=== PATIENT | female | born 1980 | race Caucasian/White ===

== ENCOUNTER 2021-09-21 22:23 | Emergency (ER) | payer OTHER ==
[~2021-09-21] VITALS: Ht 167.6 cm; Wt 56.8 kg
[2021-09-21 22:24] VITALS: BP 119/67
[2021-09-21] MEDS ORDERED: AMOX1TAB16 PO (23:40)
== END 2021-09-22 01:11 | disposition home or self-care (01) ==
LOC: EMS 22:26
DX: K04.7 Periapical abscess without sinus (principal); K02.9 Dental caries, unspecified
CPT/HCPCS: 99283; Z7502

== ENCOUNTER 2022-01-08 09:50 | Emergency (ER) | payer OTHER ==
[~2022-01-08] VITALS: Ht 165.1 cm; Wt 59.0 kg
[~2022-01-08 09:50] MED LIST: AMOX1TAB16 PO
[2022-01-08] MEDS ORDERED: ALBU8HFA IH ×2 (10:10→13:23)
[2022-01-08] MEDS ORDERED: IPRATROPIUM BROMIDE 0.5 MG/2.5 ML NEB SOLUTION NEB ONE ×2 (10:30→12:30)
[2022-01-08] MEDS ORDERED: PredniSONE 20 MG TABLET PO ONE (10:30)
[2022-01-08] MEDS ORDERED: ALBUTEROL SULFATE 2.5 MG/0.5 ML NEB SOLUTION NEB ONE ×2 (10:30→12:30)
[2022-01-08 10:48] LABS: BASOPHILS % (AUTO) 0.9 % (0.0-2.0); HEMATOCRIT 32.4 % (36-46); HEMOGLOBIN 10.1 g/dL (12.0-16.0); LYMPHOCYTES % (AUTO) 16.3 % (22.0-44.0); MEAN CORPUSCULAR HEMOGLOBIN 20.1 pg (26.0-34.0); MEAN CORPUSCULAR VOLUME 65 fL (80-100); MONOCYTES # (AUTO) 0.5 K/uL (0.1-1.0); MONOCYTES % (AUTO) 4.1 % (2.0-9.0); NEUTROPHILS # (AUTO) 7.8 K/uL (1.8-7.7); NEUTROPHILS % (AUTO) 64.7 % (40.0-70.0); PLATELET COUNT (AUTO) 384 K/uL (150-450); RED BLOOD CELL COUNT(AUTO) 5.01 MIL/uL (4.00-5.20); RED CELL DISTRIBUTION WIDTH 17.6 % (11.5-14.5)
[2022-01-08 10:56] LABS: ANION GAP 5 mmol/L (8-16); CALCIUM, TOTAL 9.1 mg/dL (8.8-10.5); CARBON DIOXIDE 28 mmol/L (22-29); CHLORIDE 98 mmol/L (98-107); CREATININE 0.55 mg/dL (0.60-1.30); GLUCOSE,RANDOM 112 mg/dL (70-110); POTASSIUM 3.9 mmol/L (3.5-5.1); SODIUM SERUM 131 mmol/L (136-145); UREA NITROGEN, BLOOD 8 mg/dL (7-18)
[2022-01-08 10:58] LABS: GLOMERULAR FILTR. RATE CALC > 60 mL/min (>60)
[2022-01-08 11:46] VITALS: BP 135/88
[2022-01-08 11:50] LABS: COVID AG,FIA SOURCE NASOPHARYNGEAL
[2022-01-08] MEDS ORDERED: PRED-554 PO (13:19)
== END 2022-01-08 14:09 | disposition home or self-care (01) ==
LOC: EMS 09:50
DX: J45.909 Unspecified asthma, uncomplicated (principal); F15.90 Other stimulant use, unspecified, uncomplicated; Z20.822 Contact with and (suspected) exposure to COVID-19
CPT/HCPCS: 99285; 71045; 87426; 80048; 84703; 85025; 36415; 94640; 93005; J7512; J7613

== ENCOUNTER 2022-05-20 20:47 | Emergency (ER) | payer OTHER ==
[~2022-05-20] VITALS: Ht 165.1 cm; Wt 56.8 kg
[~2022-05-20 20:47] MED LIST changes: +ALBU8HFA IH; -AMOX1TAB16 PO; +PRED-554 PO
[2022-05-20] MEDS ORDERED: IPRATROPIUM BROMIDE 0.5 MG/2.5 ML NEB SOLUTION NEB ONE (22:00)
[2022-05-20] MEDS ORDERED: PredniSONE 20 MG TABLET PO ONE (22:00)
[2022-05-20] MEDS ORDERED: ALBUTEROL SULFATE 2.5 MG/0.5 ML NEB SOLUTION NEB ONE (22:00)
[2022-05-20 23:19] LABS: BASOPHILS % (AUTO) 1.2 % (0.0-2.0); HEMATOCRIT 30.4 % (36-46); HEMOGLOBIN 9.3 g/dL (12.0-16.0); LYMPHOCYTES # (AUTO) 1.5 K/uL (1.0-4.8); MEAN CORPUSCULAR HGB CONC 30.6 G/dL (31.0-37.0); MEAN CORPUSCULAR VOLUME 66 fL (80-100); NEUTROPHILS % (AUTO) 62.8 % (40.0-70.0); PLATELET COUNT (AUTO) 431 K/uL (150-450); RED BLOOD CELL COUNT(AUTO) 4.64 MIL/uL (4.00-5.20); RED CELL DISTRIBUTION WIDTH 17.4 % (11.5-14.5)
[2022-05-20 23:23] LABS: ALANINE AMINOTRANSFERASE 23 U/L (12-78); ALBUMIN 3.8 g/dL (3.4-5.0); ALKALINE PHOSPHATASE 101 U/L (46-116); ANION GAP 7 mmol/L (8-16); ASPARTATE AMINOTRANSFERASE 17 U/L (15-37); BILIRUBIN,TOTAL 0.3 mg/dL (0.1-1.0); CALCIUM, TOTAL 8.7 mg/dL (8.8-10.5); CARBON DIOXIDE 28 mmol/L (22-29); CHLORIDE 101 mmol/L (98-107); CREATININE 0.65 mg/dL (0.60-1.30); GLOMERULAR FILTR. RATE CALC > 60 mL/min (>60); GLUCOSE,RANDOM 96 mg/dL (70-110); POTASSIUM 3.6 mmol/L (3.5-5.1); SODIUM SERUM 136 mmol/L (136-145); TOTAL PROTEIN, SERUM 8.1 g/dL (6.4-8.2); UREA NITROGEN, BLOOD 11 mg/dL (7-18)
[2022-05-20 23:30] VITALS: BP 143/86
[2022-05-21] MEDS ORDERED: 0.9% SODIUM CHLORIDE 5 ML NEB SOLUTION NEB ONE (00:08)
[2022-05-21 00:54] LABS: COVID AG,FIA SOURCE NASAL SWAB
[2022-05-21 01:04] LABS: INFLUENZA TYPE A NEGATIVE FOR TYPE A (NEGATIVE); INFLUENZA TYPE B NEGATIVE FOR TYPE B (NEGATIVE)
[2022-05-21] MEDS ORDERED: ALBUTEROL SULFATE 5 MG/ML 20 ML NEB SOLN [BULK] NEB ONE (01:30)
[2022-05-21] MEDS ORDERED: ALBUTEROL SULFATE 2.5 MG/0.5 ML NEB SOLUTION NEB ONE ×2 (01:45)
[2022-05-21] MEDS ORDERED: PRED-554 PO (02:35)
[2022-05-21] MEDS ORDERED: ALBU90AE IH (02:35)
== END 2022-05-21 03:03 | disposition home or self-care (01) ==
LOC: EMS 20:51
DX: J45.909 Unspecified asthma, uncomplicated (principal); F15.90 Other stimulant use, unspecified, uncomplicated; Z20.822 Contact with and (suspected) exposure to COVID-19
CPT/HCPCS: 99285; 71046; 87426; 80053; 85025; 87804; 36415; 94640; J7512; J7613

== ENCOUNTER 2022-05-30 21:18 | Emergency (ER) | payer OTHER ==
[~2022-05-30] VITALS: Ht 172.7 cm; Wt 47.7 kg
[~2022-05-30 21:18] MED LIST changes: +ALBU90AE IH
[2022-05-30] MEDS ORDERED: IPRATROPIUM BROMIDE 0.5 MG/2.5 ML NEB SOLUTION NEB ONE (22:00)
[2022-05-30] MEDS ORDERED: ALBUTEROL SULFATE 2.5 MG/0.5 ML NEB SOLUTION NEB ONE (22:00)
[2022-05-30] MEDS ORDERED: ALBUTEROL SULFATE HFA 90 MCG/PUFF 8 GM INHALER IH ONE (22:15)
[2022-05-30] MEDS ORDERED: DEXAMETHASONE SOD PHOS 4 MG/ML 5 ML VIAL IM ONE (22:15)
[2022-05-30 23:01] VITALS: BP 130/81
== END 2022-05-30 23:13 | disposition home or self-care (01) ==
LOC: EMS 21:55
DX: J45.909 Unspecified asthma, uncomplicated (principal); F15.90 Other stimulant use, unspecified, uncomplicated; Z91.018 Allergy to other foods
CPT/HCPCS: 93005; 94640; 99283

== ENCOUNTER 2023-01-10 02:58 | Inpatient (IN) | payer OTHER ==
[~2023-01-10] VITALS: Ht 165.1 cm; Wt 50.9 kg
[2023-01-10] VITALS (13 sets, daily range): BP systolic 96–106; BP diastolic 54–70; PULSE 84–111; RESP 12–28; TEMP 98.4–98.9; O2SAT 80–100
[~2023-01-10 02:58] MED LIST changes: +ALBU18HF12 IH; -ALBU8HFA IH
[2023-01-10] MEDS ORDERED: ALBUTEROL SULFATE 2.5 MG/0.5 ML NEB SOLUTION NEB ONE ×3 (03:15→05:45)
[2023-01-10] MEDS ORDERED: IPRATROPIUM BROMIDE 0.5 MG/2.5 ML NEB SOLUTION NEB ONE ×3 (03:15→05:45)
[2023-01-10] MEDS ORDERED: PredniSONE 20 MG TABLET PO ONE (03:15)
[2023-01-10] MEDS ORDERED: MAGNESIUM SULFATE 2 GM in DEXTROSE 5%-WATER 100 ML IV ONE (05:45)
[2023-01-10] MEDS ORDERED: EPINEPHrine 1:1,000 [1 MG/ML] VIAL IM ONE ×2 (06:00→07:00)
[2023-01-10] MEDS ORDERED: MethylPREDNISolone SOD SUCC 125 MG/2 ML VIAL IVP ONE (06:00)
[2023-01-10 06:12] LABS: BASOPHILS % (AUTO) 0.9 % (0.0-2.0); EOSINOPHILS % (AUTO) 14.3 % (1.0-6.0); HEMATOCRIT 33.6 % (36-46); HEMOGLOBIN 10.2 g/dL (12.0-16.0); LYMPHOCYTES # (AUTO) 1.1 K/uL (1.0-4.8); LYMPHOCYTES % (AUTO) 9.2 % (22.0-44.0); MEAN CORPUSCULAR HEMOGLOBIN 21.5 pg (26.0-34.0); MEAN CORPUSCULAR HGB CONC 30.4 G/dL (31.0-37.0); MEAN CORPUSCULAR VOLUME 71 fL (80-100); MONOCYTES # (AUTO) 0.4 K/uL (0.1-1.0); MONOCYTES % (AUTO) 3.7 % (2.0-9.0); NEUTROPHILS # (AUTO) 8.6 K/uL (1.8-7.7); NEUTROPHILS % (AUTO) 71.9 % (40.0-70.0); PLATELET COUNT (AUTO) 352 K/uL (150-450); RED BLOOD CELL COUNT(AUTO) 4.73 MIL/uL (4.00-5.20); RED CELL DISTRIBUTION WIDTH 22.9 % (11.5-14.5); WHITE BLOOD COUNT (AUTO) 11.9 K/uL (4.5-11.0)
[2023-01-10 06:20] LABS: ANION GAP 6 mmol/L (8-16); CALCIUM, TOTAL 8.4 mg/dL (8.8-10.5); CARBON DIOXIDE 26 mmol/L (22-29); CHLORIDE 100 mmol/L (98-107); CREATININE 0.52 mg/dL (0.60-1.30); GLOMERULAR FILTR. RATE CALC > 60 mL/min (>60); GLUCOSE,RANDOM 168 mg/dL (70-110); POTASSIUM 3.2 mmol/L (3.5-5.1); SODIUM SERUM 132 mmol/L (136-145); UREA NITROGEN, BLOOD 10 mg/dL (7-18)
[2023-01-10 07:09] LABS: RBC MORPHOLOGY COMMENT ABNORMAL RBC MORPH
[2023-01-10 08:27] LABS: ABG CARBOXYHEMOGLOBIN 0.3 % (0.0-1.5); ABG HCO3 22.2 mmol/L (22.0-26.0); ABG METHEMOGLOBIN 0.3 % (0.0-1.5); ABG OXYGEN CONTENT 15.8 mL/dL (15.0-23.0); ABG OXYGEN SATURATION 98.5 % (95.0-98.0); ABG OXYHEMOGLOBIN 97.9 % (94.0-100.0); ABG PCO2 41 mmHg (35-45); ABG PH 7.359 (7.35-7.450); ABG TOTAL HEMOGLOBIN 11.3 G/dL (12.0-18.0); PO2, ARTERIAL BG 126.4 mmHg (88.0-96.0); SOURCE, BLOOD GAS ARTERIAL; TEMPERATURE, FAHRENHEIT, BG 98.1 FAHREN (96.0-98.6)
[2023-01-10 08:28] LABS: ABG A-A DIFF O2 155.6 mmHg (10-20.0); ALLEN TEST, BLOOD GAS Positive; O2 DEVICE,BLOOD GAS HI FL CANNULA (ROOM AIR); SITE, BLOOD GAS RT RADIAL
[2023-01-10] MEDS ORDERED: POTASSIUM CHLORIDE 10% 40 MEQ/30 ML LIQUID UDCUP PO PRN (10:45)
[2023-01-10] MEDS ORDERED: POTASSIUM CHLORIDE 20 MEQ ER TABLET PO PRN (10:45)
[2023-01-10 11:57] LABS: COVID AG,FIA SOURCE NASAL SWAB
[2023-01-10 12:48] LABS: SARS-COV2 (COVID) ANTIGEN,FIA Negative (Negative)
[2023-01-10] MEDS ORDERED: MORPHINE SULFATE 2 MG/ML SYRINGE IVP PRN (13:00)
[2023-01-10] MEDS ORDERED: ACETAMINOPHEN 325 MG TABLET PO PRN (13:00)
[2023-01-10] MEDS ORDERED: ALBUTEROL SULFATE 2.5 MG/0.5 ML NEB SOLUTION NEB PRN (13:00)
[2023-01-10] MEDS ORDERED: BISACODYL 10 MG RECTAL RECTAL SUPPOSITORY PR PRN (13:00)
[2023-01-10] MEDS ORDERED: ONDANSETRON HCL 4 MG/2 ML VIAL IVP PRN (13:00)
[2023-01-10] MEDS ORDERED: ZOLPIDEM TARTRATE 5 MG TABLET PO PRN (13:00)
[2023-01-10] MEDS ORDERED: MAGNESIUM HYDROXIDE SUSPENSION 30 ML UDCUP PO PRN (13:00)
[2023-01-10] MEDS ORDERED: IPRATROPIUM BROMIDE 0.5 MG/2.5 ML NEB SOLUTION NEB PRN (13:00)
[2023-01-10] MEDS: OxyCODONE HCL/ACETAMINOPHEN 5-325 MG TABLET PO PRN ×2 (14:31→18:42)
[2023-01-10] MEDS: HEPARIN SODIUM,PORCINE 5,000 UNITS/ML VIAL SQ SCH (16:45)
[2023-01-10] MEDS: MethylPREDNISolone SOD SUCC 125 MG/2 ML VIAL IVP SCH (16:45)
[2023-01-10 17:20] LABS: PH,URINE DRUG SCREEN 5.5 (5.0-8.0)
[2023-01-10 17:25] LABS: ALCOHOL, URINE DRUG SCREEN NEGATIVE (NEGATIVE); AMPHET/METH SCREEN,URINE POSITIVE (NEGATIVE); BARBITURATE SCREEN, URINE NEGATIVE (NEGATIVE); BENZODIAZEPINES SCREEN,URINE NEGATIVE (NEGATIVE); CANNABINOID SCREEN,URINE NEGATIVE (NEGATIVE); COCAINE SCREEN,URINE NEGATIVE (NEGATIVE); METHADONE SCREEN, URINE NEGATIVE (NEGATIVE); OPIATE SCREEN,URINE NEGATIVE (NEGATIVE); PHENCYCLIDINE SCREEN,URINE NEGATIVE (NEGATIVE)
[2023-01-10] MEDS: ALBUTEROL SULFATE 2.5 MG/0.5 ML NEB SOLUTION NEB SCH ×2 (19:17→22:28)
[2023-01-10] MEDS: IPRATROPIUM BROMIDE 0.5 MG/2.5 ML NEB SOLUTION NEB SCH ×2 (19:18→22:28)
[2023-01-10] MEDS ORDERED: SODIUM CHLORIDE 3% 15 ML NEB SOLUTION NEB ONE (19:41)
[2023-01-10] MEDS: DOCUSATE SODIUM 100 MG CAPSULE PO SCH (20:45)
[2023-01-11] VITALS (14 sets, daily range): BP systolic 104–126; BP diastolic 56–77; PULSE 88–120; RESP 16–20; TEMP 98–98.7; O2SAT 95–98
[2023-01-11] MEDS: MethylPREDNISolone SOD SUCC 125 MG/2 ML VIAL IVP SCH ×4 (00:27→16:42)
[2023-01-11] MEDS: HEPARIN SODIUM,PORCINE 5,000 UNITS/ML VIAL SQ SCH ×3 (00:28→16:43)
[2023-01-11] MEDS: IPRATROPIUM BROMIDE 0.5 MG/2.5 ML NEB SOLUTION NEB SCH ×6 (02:29→23:00)
[2023-01-11] MEDS: ALBUTEROL SULFATE 2.5 MG/0.5 ML NEB SOLUTION NEB SCH ×6 (02:29→23:00)
[2023-01-11] MEDS: DOCUSATE SODIUM 100 MG CAPSULE PO SCH ×2 (09:03→20:26)
[2023-01-11] MEDS: PANTOPRAZOLE SODIUM 40 MG DR TABLET PO SCH (09:03)
[2023-01-11] MEDS ORDERED: MAGNESIUM SULFATE 4 GM/WATER 100 ML IV PRN (11:15)
[2023-01-11] MEDS ORDERED: MAGNESIUM SULFATE 2 GM/WATER 50 ML IV PRN (11:15)
[2023-01-11] MEDS ORDERED: MAGNESIUM OXIDE 400 MG TABLET PO PRN (11:15)
[2023-01-11] MEDS ORDERED: POTASSIUM CHLORIDE 20 MEQ ER TABLET PO PRN (11:15)
[2023-01-11] MEDS ORDERED: POTASSIUM CHL 10 MEQ/WATER 50 ML IV PRN (11:15)
[2023-01-11 11:39] LABS: ALBUMIN 3.4 g/dL (3.4-5.0); ANION GAP 13 mmol/L (8-16); CALCIUM, TOTAL 9.1 mg/dL (8.8-10.5); CARBON DIOXIDE 22 mmol/L (22-29); CHLORIDE 101 mmol/L (98-107); CREATININE 0.57 mg/dL (0.60-1.30); GLOMERULAR FILTR. RATE CALC > 60 mL/min (>60); GLUCOSE,RANDOM 165 mg/dL (70-110); POTASSIUM 4.2 mmol/L (3.5-5.1); SODIUM SERUM 136 mmol/L (136-145); UREA NITROGEN, BLOOD 14 mg/dL (7-18)
[2023-01-11] MEDS ORDERED: SODIUM CHLORIDE 0.9% 250 ML IV ONE (12:14)
[2023-01-12] VITALS (12 sets, daily range): BP systolic 115–123; BP diastolic 76–88; PULSE 88–108; RESP 16–20; TEMP 98.2–98.6; O2SAT 90–100
[2023-01-12] MEDS: MethylPREDNISolone SOD SUCC 125 MG/2 ML VIAL IVP SCH ×5 (00:22→23:41)
[2023-01-12] MEDS: HEPARIN SODIUM,PORCINE 5,000 UNITS/ML VIAL SQ SCH ×4 (00:23→23:41)
[2023-01-12] MEDS: IPRATROPIUM BROMIDE 0.5 MG/2.5 ML NEB SOLUTION NEB SCH ×5 (02:33→22:53)
[2023-01-12] MEDS: ALBUTEROL SULFATE 2.5 MG/0.5 ML NEB SOLUTION NEB SCH ×5 (02:34→22:53)
[2023-01-12 07:06] LABS: MAGNESIUM 2.3 mg/dL (1.80-2.40); POTASSIUM 4.5 mmol/L (3.5-5.1)
[2023-01-12] MEDS: DOCUSATE SODIUM 100 MG CAPSULE PO SCH ×2 (08:00→19:48)
[2023-01-12] MEDS: PANTOPRAZOLE SODIUM 40 MG DR TABLET PO SCH (08:01)
[2023-01-13 02:57] VITALS: PULSE 96; RESP 18; O2SAT 95
[2023-01-13] MEDS: ALBUTEROL SULFATE 2.5 MG/0.5 ML NEB SOLUTION NEB SCH ×3 (02:57→11:02)
[2023-01-13] MEDS: IPRATROPIUM BROMIDE 0.5 MG/2.5 ML NEB SOLUTION NEB SCH ×3 (02:57→11:02)
[2023-01-13 03:27] VITALS: BP 121/72; PULSE 97; RESP 18; TEMP 99
[2023-01-13] MEDS: MethylPREDNISolone SOD SUCC 125 MG/2 ML VIAL IVP SCH (06:45)
[2023-01-13 07:00] VITALS: PULSE 98; PULSE 99; RESP 18; O2SAT 92; O2SAT 98
[2023-01-13] MEDS: HEPARIN SODIUM,PORCINE 5,000 UNITS/ML VIAL SQ SCH (08:08)
[2023-01-13 08:15] LABS: EOSINOPHILS % (AUTO) 0.1 % (1.0-6.0); LYMPHOCYTES # (AUTO) 0.9 K/uL (1.0-4.8); LYMPHOCYTES % (AUTO) 6.1 % (22.0-44.0); MEAN CORPUSCULAR HEMOGLOBIN 21.4 pg (26.0-34.0); MEAN CORPUSCULAR HGB CONC 30.4 G/dL (31.0-37.0); MEAN CORPUSCULAR VOLUME 71 fL (80-100); MONOCYTES # (AUTO) 0.4 K/uL (0.1-1.0); MONOCYTES % (AUTO) 2.9 % (2.0-9.0); PLATELET COUNT (AUTO) 386 K/uL (150-450); RED BLOOD CELL COUNT(AUTO) 4.68 MIL/uL (4.00-5.20); RED CELL DISTRIBUTION WIDTH 23.7 % (11.5-14.5); WHITE BLOOD COUNT (AUTO) 14.3 K/uL (4.5-11.0)
[2023-01-13 08:17] LABS: NEUTROPHILS % (AUTO) 90.9 % (40.0-70.0)
[2023-01-13 08:34] LABS: ALANINE AMINOTRANSFERASE 18 U/L (12-78); ALBUMIN 3.1 g/dL (3.4-5.0); ALKALINE PHOSPHATASE 73 U/L (46-116); ANION GAP 11 mmol/L (8-16); ASPARTATE AMINOTRANSFERASE 11 U/L (15-37); BILIRUBIN,TOTAL 0.2 mg/dL (0.1-1.0); CALCIUM, TOTAL 8.6 mg/dL (8.8-10.5); CARBON DIOXIDE 30 mmol/L (22-29); CHLORIDE 98 mmol/L (98-107); CREATININE 0.47 mg/dL (0.60-1.30); GLOMERULAR FILTR. RATE CALC > 60 mL/min (>60); GLUCOSE,RANDOM 130 mg/dL (70-110); POTASSIUM 4.4 mmol/L (3.5-5.1); SODIUM SERUM 139 mmol/L (136-145); UREA NITROGEN, BLOOD 16 mg/dL (7-18)
[2023-01-13] MEDS: PANTOPRAZOLE SODIUM 40 MG DR TABLET PO SCH (08:37)
[2023-01-13] MEDS: DOCUSATE SODIUM 100 MG CAPSULE PO SCH (08:37)
[2023-01-13 09:39] VITALS: BP 123/81; PULSE 88; RESP 20; TEMP 98.7
[2023-01-13 11:00] VITALS: PULSE 89; RESP 16; O2SAT 99
[2023-01-13] MEDS ORDERED: PredniSONE 20 MG TABLET PO ONE (12:15)
[2023-01-13] MEDS ORDERED: AZIT250T9 PO (12:18)
[2023-01-13] MEDS ORDERED: ALBU18HF12 IH (12:18)
[2023-01-13] MEDS ORDERED: PRED-729 PO (12:18)
== END 2023-01-13 12:00 | disposition left against medical advice (07) | DRG 141 ==
LOC: EMS 02:58 → AHU 08:56 → 5S 10:15 → 6S 01-12 18:45
PROVIDERS: ADMIT Hospitalist; ATTEND Hospitalist
DX: J45.901 Unspecified asthma with (acute) exacerbation (principal); E44.0 Moderate protein-calorie malnutrition; E87.6 Hypokalemia; E87.1 Hypo-osmolality and hyponatremia; F19.11 Other psychoactive substance abuse, in remission; Z20.822 Contact with and (suspected) exposure to COVID-19; R91.1 Solitary pulmonary nodule; F10.90 Alcohol use, unspecified, uncomplicated; Z53.21 Procedure and treatment not carried out due to patient leaving prior to being seen by health care provider; Z91.018 Allergy to other foods; Z79.899 Other long term (current) drug therapy; Z68.1 Body mass index [BMI] 19.9 or less, adult
CPT/HCPCS: 36600; 71045; 80048; 80053; 80307; 82040; 82805; 83735; 84132; 85025; 87015; 87206; 94640; 94644; 94645; 97165; 97530; 99291; G0378; J0171; J1644; J2930; J3475; J7050; J7060; 36415-L1; 36415-TC; J7613

== ENCOUNTER 2023-09-27 18:48 | Emergency (ER) | payer OTHER ==
[~2023-09-27] VITALS: Ht 165.1 cm; Wt 59.1 kg
[~2023-09-27 18:48] MED LIST changes: -ALBU90AE IH; -PRED-554 PO; +PRED-729 PO
[2023-09-27 19:17] VITALS: BP 98/69; PULSE 105; RESP 16; TEMP 98.5
[2023-09-27 19:54] LABS: BASOPHILS % (AUTO) 0.5 % (0.0-2.0); EOSINOPHILS % (AUTO) 10.7 % (1.0-6.0); HEMATOCRIT 32.2 % (36-46); HEMOGLOBIN 9.6 g/dL (12.0-16.0); LYMPHOCYTES # (AUTO) 1.6 K/uL (1.0-4.8); LYMPHOCYTES % (AUTO) 11.9 % (22.0-44.0); MEAN CORPUSCULAR HEMOGLOBIN 20.1 pg (26.0-34.0); MEAN CORPUSCULAR HGB CONC 29.9 G/dL (31.0-37.0); MEAN CORPUSCULAR VOLUME 67 fL (80-100); MONOCYTES # (AUTO) 0.6 K/uL (0.1-1.0); MONOCYTES % (AUTO) 4.5 % (2.0-9.0); NEUTROPHILS # (AUTO) 9.9 K/uL (1.8-7.7); NEUTROPHILS % (AUTO) 72.4 % (40.0-70.0); PLATELET COUNT (AUTO) 398 K/uL (150-450); RED BLOOD CELL COUNT(AUTO) 4.79 MIL/uL (4.00-5.20); RED CELL DISTRIBUTION WIDTH 18.4 % (11.5-14.5); WHITE BLOOD COUNT (AUTO) 13.7 K/uL (4.5-11.0)
[2023-09-27 20:01] LABS: ANION GAP 11 mmol/L (8-16); CALCIUM, TOTAL 8.5 mg/dL (8.8-10.5); CARBON DIOXIDE 26 mmol/L (22-29); CHLORIDE 105 mmol/L (98-107); CREATININE 0.57 mg/dL (0.60-1.30); GLOMERULAR FILTR. RATE CALC > 60 mL/min (>60); GLUCOSE,RANDOM 108 mg/dL (70-110); POTASSIUM 3.9 mmol/L (3.5-5.1); SODIUM SERUM 142 mmol/L (136-145); UREA NITROGEN, BLOOD 12 mg/dL (7-18)
[2023-09-27 20:07] LABS: ALANINE AMINOTRANSFERASE 25 U/L (12-78); ALKALINE PHOSPHATASE 93 U/L (46-116); ASPARTATE AMINOTRANSFERASE 22 U/L (15-37); BILIRUBIN,TOTAL 0.2 mg/dL (0.1-1.0); TOTAL PROTEIN, SERUM 8.7 g/dL (6.4-8.2)
[2023-09-27 21:01] LABS: RBC MORPHOLOGY COMMENT ABNORMAL RBC MORPH
== END 2023-09-27 22:09 | disposition left against medical advice (07) ==
LOC: EMS 18:52
DX: R21 Rash and other nonspecific skin eruption (principal); Z53.21 Procedure and treatment not carried out due to patient leaving prior to being seen by health care provider
CPT/HCPCS: 80053; 85025

== ENCOUNTER 2023-12-10 08:40 | Emergency (ER) | payer OTHER ==
[~2023-12-10] VITALS: Ht 160 cm; Wt 56.8 kg
[2023-12-10 08:46] VITALS: TEMP 98.3
[2023-12-10 09:49] VITALS: PULSE 93; RESP 24; O2SAT 93
[2023-12-10] MEDS: ALBUTEROL SULFATE 2.5 MG/0.5 ML NEB SOLUTION NEB ONE (09:49)
[2023-12-10 10:08] VITALS: PULSE 93; RESP 24; O2SAT 93
[2023-12-10] MEDS: PredniSONE 20 MG TABLET PO ONE (10:17)
[2023-12-10 10:29] LABS: COVID AG,FIA SOURCE NASAL SWAB
[2023-12-10 10:59] LABS: SARS-COV2 (COVID) ANTIGEN,FIA Negative (Negative)
[2023-12-10] MEDS ORDERED: IPRATROPIUM BROMIDE 0.5 MG/2.5 ML NEB SOLUTION NEB ONE (11:00)
[2023-12-10] MEDS ORDERED: ALBUTEROL SULFATE 2.5 MG/0.5 ML NEB SOLUTION NEB ONE (11:00)
[2023-12-10 11:03] VITALS: PULSE 82; RESP 16; O2SAT 93
[2023-12-10] MEDS: ALBUTEROL SULFATE 2.5 MG/0.5 ML 5 ML NEB SOLUTION NEB ONE (11:03)
[2023-12-10] MEDS: IPRATROPIUM BROMIDE 0.5 MG/2.5 ML NEB SOLUTION NEB ONE (11:03)
[2023-12-10 11:07] LABS: INFLUENZA TYPE A NEGATIVE FOR TYPE A (NEGATIVE); INFLUENZA TYPE B NEGATIVE FOR TYPE B (NEGATIVE)
[2023-12-10] MEDS ORDERED: [UNRECOGNIZED DRUG - CODE] (12:18)
[2023-12-10] MEDS ORDERED: ALBU2.5V39 NEB (12:18)
[2023-12-10] MEDS ORDERED: PRED-554 PO (12:18)
[2023-12-10 12:19] VITALS: PULSE 92; RESP 19; O2SAT 100
[2023-12-10 12:30] VITALS: BP 135/74; PULSE 90; RESP 19
[2023-12-11] MEDS ORDERED: GUAIFDM PO (14:05)
[2023-12-11] MEDS ORDERED: PRED-554 PO (14:05)
[2023-12-11] MEDS ORDERED: ALBU18HF12 IH (14:05)
[2023-12-11] MEDS ORDERED: BECL10.62 IH (14:10)
== END 2023-12-10 12:30 | disposition home or self-care (01) ==
LOC: EMS 08:40
DX: J45.901 Unspecified asthma with (acute) exacerbation (principal); F15.90 Other stimulant use, unspecified, uncomplicated; Z20.822 Contact with and (suspected) exposure to COVID-19
CPT/HCPCS: 99285; 87426; 87804; 94644; J7512; 94640

== ENCOUNTER 2023-12-11 09:17 | Emergency (ER) | payer OTHER ==
[~2023-12-11] VITALS: Ht 165.1 cm; Wt 56.8 kg
[~2023-12-11 09:17] MED LIST changes: +ALBU2.5V39 NEB; +PRED-554 PO; +[UNRECOGNIZED DRUG - CODE]
[2023-12-11 09:23] VITALS: TEMP 97.9
[2023-12-11 09:28] VITALS: PULSE 100; RESP 22; O2SAT 98
[2023-12-11] MEDS: IPRATROPIUM BROMIDE 0.5 MG/2.5 ML NEB SOLUTION NEB ONE ×2 (09:28→13:57)
[2023-12-11] MEDS: ALBUTEROL SULFATE 2.5 MG/0.5 ML 5 ML NEB SOLUTION NEB ONE ×2 (09:29→13:56)
[2023-12-11] MEDS: MethylPREDNISolone SOD SUCC 125 MG/2 ML VIAL IVP ONE (09:57)
[2023-12-11] MEDS: EPINEPHrine 1:1,000 [1 MG/ML] VIAL SQ ONE (10:01)
[2023-12-11 10:07] LABS: BASOPHILS % (AUTO) 0.5 % (0.0-2.0); EOSINOPHILS % (AUTO) 3.6 % (1.0-6.0); HEMOGLOBIN 9.1 g/dL (12.0-16.0); LYMPHOCYTES # (AUTO) 2.5 K/uL (1.0-4.8); LYMPHOCYTES % (AUTO) 26.2 % (22.0-44.0); MEAN CORPUSCULAR HEMOGLOBIN 20.3 pg (26.0-34.0); MEAN CORPUSCULAR HGB CONC 30.4 G/dL (31.0-37.0); MEAN CORPUSCULAR VOLUME 67 fL (80-100); MONOCYTES # (AUTO) 0.9 K/uL (0.1-1.0); MONOCYTES % (AUTO) 9.7 % (2.0-9.0); NEUTROPHILS # (AUTO) 5.8 K/uL (1.8-7.7); PLATELET COUNT (AUTO) 517 K/uL (150-450); RED BLOOD CELL COUNT(AUTO) 4.49 MIL/uL (4.00-5.20); RED CELL DISTRIBUTION WIDTH 18.6 % (11.5-14.5); WHITE BLOOD COUNT (AUTO) 9.6 K/uL (4.5-11.0)
[2023-12-11 10:14] LABS: ANION GAP 8 mmol/L (8-16); CALCIUM, TOTAL 8.6 mg/dL (8.8-10.5); CARBON DIOXIDE 28 mmol/L (22-29); CHLORIDE 101 mmol/L (98-107); CREATININE 0.72 mg/dL (0.60-1.30); GLOMERULAR FILTR. RATE CALC > 60 mL/min (>60); GLUCOSE,RANDOM 100 mg/dL (70-110); POTASSIUM 3.7 mmol/L (3.5-5.1); SODIUM SERUM 137 mmol/L (136-145); UREA NITROGEN, BLOOD 17 mg/dL (7-18)
[2023-12-11 10:41] LABS: RBC MORPHOLOGY COMMENT ABNORMAL RBC MORPH
[2023-12-11 10:46] VITALS: RESP 20; O2SAT 100
[2023-12-11 13:55] VITALS: BP 154/81; PULSE 85; RESP 20; O2SAT 98
[2023-12-11] MEDS ORDERED: GUAIFDM PO (14:05)
[2023-12-11] MEDS ORDERED: PRED-554 PO (14:05)
[2023-12-11] MEDS ORDERED: ALBU18HF12 IH (14:05)
[2023-12-11] MEDS ORDERED: BECL10.62 IH (14:10)
[2023-12-11 14:55] VITALS: PULSE 80; RESP 18; O2SAT 100
== END 2023-12-11 15:05 | disposition home or self-care (01) ==
LOC: EMS 09:17
DX: J45.901 Unspecified asthma with (acute) exacerbation (principal); R05.9 Cough, unspecified; R06.00 Dyspnea, unspecified; F15.10 Other stimulant abuse, uncomplicated; Z91.018 Allergy to other foods
CPT/HCPCS: 99285; 96374; 71045; 80048; 84703; 85025; 36415; 94644; 94645; 93005; 96372; J0171; J2919

== ENCOUNTER 2024-01-02 16:23 | Emergency (ER) | payer OTHER ==
[~2024-01-02] VITALS: Ht 165.1 cm; Wt 65.9 kg
[~2024-01-02 16:23] MED LIST changes: +BECL10.62 IH; +GUAIFDM PO
[2024-01-02 16:30] VITALS: TEMP 98
[2024-01-02] MEDS ORDERED: FLUT1BLS19 IH (16:33)
[2024-01-02 18:52] VITALS: BP 117/74; PULSE 94; RESP 16
== END 2024-01-02 19:53 | disposition left against medical advice (07) ==
LOC: EMS 16:23
DX: H92.02 Otalgia, left ear (principal); Z53.21 Procedure and treatment not carried out due to patient leaving prior to being seen by health care provider

== ENCOUNTER 2024-07-06 04:17 | Emergency (ER) | payer OTHER ==
[~2024-07-06] VITALS: Ht 165.1 cm; Wt 56.8 kg
[~2024-07-06 04:17] MED LIST changes: -ALBU2.5V39 NEB; -BECL10.62 IH; +FLUT1BLS19 IH; -GUAIFDM PO; -PRED-554 PO; -PRED-729 PO; -[UNRECOGNIZED DRUG - CODE]
[2024-07-06] MEDS ORDERED: CEPH-558 PO (04:38)
[2024-07-06] MEDS ORDERED: SULF-261 PO (04:38)
[2024-07-06] MEDS: SULFAMETHOX/TRIMETH DS 800-160 MG/TABLET PO ONE (04:45)
[2024-07-06] MEDS: CEPHALEXIN MONOHYDRATE 500 MG CAPSULE PO ONE (04:45)
[2024-07-06 04:50] VITALS: BP 126/67; PULSE 74; RESP 20; TEMP 97.3; O2SAT 100
== END 2024-07-06 05:23 | disposition home or self-care (01) ==
LOC: EMS 04:22
DX: L03.115 Cellulitis of right lower limb (principal); J45.909 Unspecified asthma, uncomplicated; F15.90 Other stimulant use, unspecified, uncomplicated; Z79.51 Long term (current) use of inhaled steroids
CPT/HCPCS: 99283

== ENCOUNTER 2024-11-10 22:25 | Emergency (ER) | payer OTHER ==
[~2024-11-10] VITALS: Ht 165.1 cm; Wt 59.1 kg
[~2024-11-10 22:25] MED LIST changes: +CEPH-558 PO; +SULF-261 PO
[2024-11-10 23:15] VITALS: TEMP 97.905272
[2024-11-11] MEDS ORDERED: CLIN-142 PO (00:27)
[2024-11-11 00:30] VITALS: BP 122/86; PULSE 72; RESP 16; O2SAT 100
== END 2024-11-11 00:44 | disposition home or self-care (01) ==
LOC: EMS 23:54
DX: H00.015 Hordeolum externum left lower eyelid (principal); J45.909 Unspecified asthma, uncomplicated; F15.90 Other stimulant use, unspecified, uncomplicated; Z79.51 Long term (current) use of inhaled steroids; Z79.899 Other long term (current) drug therapy; Z91.018 Allergy to other foods
CPT/HCPCS: 99283

== ENCOUNTER 2025-03-24 16:48 | Emergency (ER) | payer OTHER ==
[~2025-03-24] VITALS: Ht 165.1 cm; Wt 59.4 kg
[~2025-03-24 16:48] MED LIST changes: +CLIN-142 PO; -SULF-261 PO; +SULF1TAB94 PO
[2025-03-24 17:50] VITALS: BP 117/87; PULSE 88; RESP 18; TEMP 98.1; O2SAT 100
[2025-03-24] MEDS: BACITRACIN 0.9 GM PACKET OINTMENT TP ONE (20:04)
[2025-03-24] MEDS ORDERED: SULF1TAB94 PO (20:21)
== END 2025-03-24 20:53 | disposition home or self-care (01) ==
LOC: EMS 16:48
DX: L08.9 Local infection of the skin and subcutaneous tissue, unspecified (principal); J45.909 Unspecified asthma, uncomplicated; F15.90 Other stimulant use, unspecified, uncomplicated; Z79.51 Long term (current) use of inhaled steroids
CPT/HCPCS: 99282; Z7502; Z7610